=== PATIENT | female | born 1960 | race African-American/Black ===

== ENCOUNTER 2017-03-18 11:49 | Emergency (ER) | payer OTHER ==
[~2017-03-18] VITALS: Ht 167.6 cm; Wt 72.6 kg
[2017-03-18 12:20] VITALS: BP 187/83
[2017-03-18] MEDS ORDERED: cefTRIAXone SOD 1,000 MG VL IM ONE (12:30)
== END 2017-03-18 12:39 | disposition home or self-care (01) ==
LOC: ER 11:49
DX: L03.211 Cellulitis of face (principal)
CPT/HCPCS: 96372; 99283; J0696

== ENCOUNTER 2024-01-21 19:12 | Inpatient (IN) | payer OTHER ==
[~2024-01-21] VITALS: Ht 167.6 cm; Wt 64.9 kg
[2024-01-21 20:18] LABS: Basophils # (auto) 0 10 ^3/uL (0-0.2); Basophils % (auto) 1.1 % (0.0-2.0); Eosinophils # (auto) 0.2 10 ^3/uL (0-0.8); Hematocrit 34.3 % (36.0-46.0); Hemoglobin 11.2 g/dL (12.2-16.2); Lymphocytes # (auto) 1.9 10 ^3/uL (0.4-5.4); Lymphocytes % (auto) 42.7 % (10.0-50.0); Mean Corpuscular Hemoglobin 29.5 pg (28.0-32.0); Mean Corpuscular Hgb Conc. 32.7 g/dL (32.0-36.0); Monocytes # (auto) 0.7 10 ^3/uL (0-1.3); Monocytes % (auto) 15.6 % (0.0-12.0); Neutrophils # (auto) 1.6 10 ^3/uL (1.6-8.6); Neutrophils % (auto) 36.6 % (37.0-80.0); Nucleated Red Blood Cells % 0.2 %; Platelet Count (auto) 173 10^3/uL (140-450); Red Blood Cells 3.81 10^6/uL (4.0-5.20); Red Cell Distribution Width 13.8 % (11.8-14.3); White Blood Cell 4.3 10^3/uL (4.4-10.8)
[2024-01-21 20:34] LABS: INR 1.08 (0.9-1.15); Partial Thromboplastin Time 25.4 SEC (24.5-34.5); Prothrombin Time 11.4 sec (9.3-11.8)
[2024-01-21 20:38] LABS: Alanine Aminotransferase 54 U/L (7-40); Albumin 3.9 g/dL (3.2-4.8); Alkaline Phosphatase 125 U/L (46-116); Anion Gap 7 (5-15); Aspartate Aminotransferase 40 U/L (13-40); Bilirubin, Total 0.4 mg/dL (0.2-1.0); Blood Urea Nitrogen 15 mg/dL (9-23); Calcium 10.1 mg/dL (8.7-10.4); Carbon Dioxide 25 mmol/L (20-30); Chloride 112 mmol/L (98-107); Glucose 125 mg/dL (74-106); Potassium 3.8 mmol/L (3.5-5.1); Sodium 144 mmol/L (136-145)
[2024-01-21 20:39] LABS: Total Protein 6.2 g/dL (5.7-8.2)
[2024-01-21] MEDS: NITROGLYCERIN 0.4 MG SL TAB SL ONE (21:15)
[2024-01-21] MEDS: IOHEXOL 350 MG/ML 100ML IJ ONE (21:21)
[2024-01-21 21:50] VITALS: PULSE 88; RESP 29; O2SAT 96
[2024-01-21] MEDS: ASPirin 325 MG TAB PO ONE (22:36)
[2024-01-21 22:45] LABS: Urine Bacteria None Seen /hpf (None Seen)
[2024-01-21 23:03] LABS: Amphetamine Screen, Urine Neg (NEGATIVE); Barbiturate Scree,Urine Neg (NEGATIVE); Benzodiazephine Screen, Urine Neg (NEGATIVE); Cannabinoid Screen, Urine Pos (NEGATIVE); Cocaine Screen, Urine Neg (NEGATIVE); Opiate Scree,Urine Neg (NEGATIVE); Phencyclidine Screen, Urine Neg (NEGATIVE)
[2024-01-21 23:14] LABS: Urine Blood Negative /uL (Negative); Urine Clarity Turbid (Clear); Urine Color Yellow (Yellow); Urine Mucus FEW (None Seen); Urine Protein, UAD TRACE (Negative); Urine Specific Gravity 1.025 (1.001-1.035); Urine Urobilinogen 2 mg/dL (Negative); Urine WBC 16 /hpf (0 - 5); Urine pH 5.5 (5.0-9.0)
[2024-01-22] MEDS ORDERED: DOCUSATE SOD 100 MG CAP PO PRN (00:15)
[2024-01-22] MEDS ORDERED: NITROGLYCERIN 0.4 MG SL TAB SL PRN (00:15)
[2024-01-22] MEDS ORDERED: HYDROcodone-ACET 5/325MG TAB PO PRN (00:15)
[2024-01-22] MEDS ORDERED: MORPHINE SULFATE INJ 2 MG/ml SYRG IV PRN ×2 (00:15)
[2024-01-22] MEDS ORDERED: ONDANSETRON HCL 4 MG/2 ML VIAL IV PRN (00:15)
[2024-01-22 05:30] LABS: Basophils # (auto) 0.1 10 ^3/uL (0-0.2); Basophils % (auto) 1.3 % (0.0-2.0); Eosinophils # (auto) 0.2 10 ^3/uL (0-0.8); Eosinophils % (auto) 4.3 % (0.0-7.0); Hematocrit 30.7 % (36.0-46.0); Hemoglobin 10.4 g/dL (12.2-16.2); Lymphocytes # (auto) 1.9 10 ^3/uL (0.4-5.4); Lymphocytes % (auto) 44.2 % (10.0-50.0); Mean Corpuscular Hemoglobin 29.9 pg (28.0-32.0); Mean Corpuscular Hgb Conc. 33.8 g/dL (32.0-36.0); Mean Corpuscular Volume 88.4 fL (80.0-100.0); Monocytes # (auto) 0.5 10 ^3/uL (0-1.3); Monocytes % (auto) 10.7 % (0.0-12.0); Neutrophils # (auto) 1.7 10 ^3/uL (1.6-8.6); Neutrophils % (auto) 39.5 % (37.0-80.0); Platelet Count (auto) 145 10^3/uL (140-450); Red Blood Cells 3.47 10^6/uL (4.0-5.20); Red Cell Distribution Width 13.4 % (11.8-14.3); White Blood Cell 4.3 10^3/uL (4.4-10.8)
[2024-01-22 05:34] LABS: Chloride 111 mmol/L (98-107); Potassium 3.7 mmol/L (3.5-5.1); Sodium 142 mmol/L (136-145)
[2024-01-22 05:35] LABS: Anion Gap 6 (5-15); Carbon Dioxide 25 mmol/L (20-30)
[2024-01-22 05:36] LABS: Calcium 9.9 mg/dL (8.7-10.4)
[2024-01-22 05:41] LABS: BUN/Creatinine Ratio 31.4 (10.0-20.0); Blood Urea Nitrogen 16 mg/dL (9-23); Glucose 103 mg/dL (74-106)
[2024-01-22 07:55] VITALS: PULSE 86; RESP 14; O2SAT 98
[2024-01-22] MEDS: ASPirin 81 mg TAB PO SCH (09:37)
[2024-01-22] MEDS: ENOXAPARIN SOD 40 MG/0.4 ML SYRINGE SC SCH (09:37)
[2024-01-22] MEDS: cefTRIAXone 1GM/50ML D5W 50 ML IV SCH (09:37)
[2024-01-22] MEDS ORDERED: ATORVASTATIN 20 MG TAB PO SCH (10:00)
[2024-01-22] MEDS: MAGNESIUM SULFATE 1GM/100ML 100 ML IV SCH (13:45)
[2024-01-22] MEDS: methIMAzole 5 MG TAB PO SCH (15:21)
[2024-01-22 20:10] VITALS: PULSE 94; RESP 19; O2SAT 96
[2024-01-22 21:19] VITALS: BP 168/57; PULSE 80; RESP 18; TEMP 98; O2SAT 96
[2024-01-22 21:41] VITALS: PULSE 80; RESP 18; O2SAT 96
[2024-01-22] MEDS: ATORVASTATIN 20 MG TAB PO SCH (22:00)
[2024-01-22 23:46] VITALS: BP 159/49; PULSE 90; RESP 20; O2SAT 94
[2024-01-23] VITALS (7 sets, daily range): BP systolic 152–168; BP diastolic 79–109; PULSE 66–156; RESP 17–21; TEMP 97.4–98.7; O2SAT 91–98
[2024-01-23] MEDS: dilTIAZem 25 MG/5 ML VIAL IV ONE ×2 (07:02→09:19)
[2024-01-23 07:15] LABS: Basophils # (auto) 0 10 ^3/uL (0-0.2); Basophils % (auto) 0.2 % (0.0-2.0); Eosinophils # (auto) 0.2 10 ^3/uL (0-0.8); Eosinophils % (auto) 4.6 % (0.0-7.0); Hematocrit 30.9 % (36.0-46.0); Hemoglobin 10.6 g/dL (12.2-16.2); Lymphocytes # (auto) 1.3 10 ^3/uL (0.4-5.4); Lymphocytes % (auto) 37.8 % (10.0-50.0); Mean Corpuscular Hemoglobin 30.3 pg (28.0-32.0); Mean Corpuscular Hgb Conc. 34.2 g/dL (32.0-36.0); Mean Corpuscular Volume 88.5 fL (80.0-100.0); Monocytes # (auto) 0.4 10 ^3/uL (0-1.3); Monocytes % (auto) 10.1 % (0.0-12.0); Neutrophils # (auto) 1.6 10 ^3/uL (1.6-8.6); Neutrophils % (auto) 47.3 % (37.0-80.0); Nucleated Red Blood Cells % 0.1 %; Platelet Count (auto) 138 10^3/uL (140-450); Red Cell Distribution Width 13.4 % (11.8-14.3); White Blood Cell 3.5 10^3/uL (4.4-10.8)
[2024-01-23 07:32] LABS: Anion Gap 8 (5-15); Carbon Dioxide 24 mmol/L (20-30); Chloride 111 mmol/L (98-107); Potassium 3.7 mmol/L (3.5-5.1); Sodium 143 mmol/L (136-145)
[2024-01-23 07:33] LABS: Calcium 9.7 mg/dL (8.7-10.4)
[2024-01-23 07:37] LABS: Free T3 11.84 pg/mL (2.3-4.2)
[2024-01-23 07:38] LABS: BUN/Creatinine Ratio 16.4 (10.0-20.0); Blood Urea Nitrogen 9 mg/dL (9-23); Free T4 (Free Thyroxine) 3.13 ng/dL (0.89-1.76); Glucose 152 mg/dL (74-106)
[2024-01-23] MEDS: METOPROLOL SUCCINATE XL 50 MG TAB PO SCH (09:18)
[2024-01-23] MEDS: ENOXAPARIN SOD 60 MG/0.6 ML SYRINGE SC ONE (12:45)
[2024-01-23] MEDS: methIMAzole 5 MG TAB PO SCH (15:45)
[2024-01-23] MEDS: DIGOXIN (250MCG/ML) 2 ML AMPULE IV ONE (15:46)
[2024-01-23] MEDS: ENOXAPARIN SOD 60 MG/0.6 ML SYRINGE SC SCH (22:00)
[2024-01-24] VITALS (8 sets, daily range): BP systolic 121–147; BP diastolic 48–90; PULSE 74–129; RESP 16–20; TEMP 97.1–98.4; O2SAT 94–99
[2024-01-24] MEDS: ACETAMINOPHEN 325 MG TAB PO PRN (01:06)
[2024-01-24 08:07] LABS: Basophils # (auto) 0 10 ^3/uL (0-0.2); Basophils % (auto) 0.3 % (0.0-2.0); Eosinophils # (auto) 0.3 10 ^3/uL (0-0.8); Eosinophils % (auto) 7.9 % (0.0-7.0); Hematocrit 34.5 % (36.0-46.0); Hemoglobin 11.6 g/dL (12.2-16.2); Lymphocytes # (auto) 1.6 10 ^3/uL (0.4-5.4); Lymphocytes % (auto) 46.5 % (10.0-50.0); Mean Corpuscular Hemoglobin 29.7 pg (28.0-32.0); Mean Corpuscular Hgb Conc. 33.6 g/dL (32.0-36.0); Mean Corpuscular Volume 88.4 fL (80.0-100.0); Monocytes # (auto) 0.5 10 ^3/uL (0-1.3); Monocytes % (auto) 13.5 % (0.0-12.0); Neutrophils # (auto) 1.1 10 ^3/uL (1.6-8.6); Neutrophils % (auto) 31.8 % (37.0-80.0); Nucleated Red Blood Cells % 0.3 %; Platelet Count (auto) 156 10^3/uL (140-450); Red Blood Cells 3.91 10^6/uL (4.0-5.20); Red Cell Distribution Width 13.6 % (11.8-14.3); White Blood Cell 3.4 10^3/uL (4.4-10.8)
[2024-01-24 08:17] LABS: Anion Gap 7 (5-15); Carbon Dioxide 25 mmol/L (20-31); Chloride 111 mmol/L (98-107); Potassium 3.6 mmol/L (3.5-5.1); Sodium 143 mmol/L (136-145)
[2024-01-24 08:18] LABS: Calcium 10.2 mg/dL (8.7-10.4)
[2024-01-24 08:23] LABS: BUN/Creatinine Ratio 18.9 (10.0-20.0); Blood Urea Nitrogen 10 mg/dL (9-23)
[2024-01-24 08:29] LABS: Glucose 108 mg/dL (74-106)
[2024-01-24 09:25] LABS: Free T3 8.72 pg/mL (2.3-4.2)
[2024-01-24 09:27] LABS: Free T4 (Free Thyroxine) 2.58 ng/dL (0.89-1.76)
[2024-01-24] MEDS: DIGOXIN 0.125 MG TAB PO SCH (11:17)
[2024-01-25] VITALS (7 sets, daily range): BP systolic 119–140; BP diastolic 57–88; PULSE 66–95; RESP 16–20; TEMP 97.6–98.7; O2SAT 95–98
[2024-01-25 06:11] LABS: Basophils # (auto) 0 10 ^3/uL (0-0.2); Basophils % (auto) 0.4 % (0.0-2.0); Eosinophils # (auto) 0.3 10 ^3/uL (0-0.8); Eosinophils % (auto) 6.3 % (0.0-7.0); Hematocrit 32.4 % (36.0-46.0); Hemoglobin 11.3 g/dL (12.2-16.2); Lymphocytes # (auto) 1.8 10 ^3/uL (0.4-5.4); Lymphocytes % (auto) 45.3 % (10.0-50.0); Mean Corpuscular Hemoglobin 30.7 pg (28.0-32.0); Mean Corpuscular Hgb Conc. 34.8 g/dL (32.0-36.0); Mean Corpuscular Volume 88.2 fL (80.0-100.0); Monocytes # (auto) 0.6 10 ^3/uL (0-1.3); Monocytes % (auto) 14.6 % (0.0-12.0); Neutrophils # (auto) 1.4 10 ^3/uL (1.6-8.6); Neutrophils % (auto) 33.4 % (37.0-80.0); Platelet Count (auto) 149 10^3/uL (140-450); Red Blood Cells 3.68 10^6/uL (4.0-5.20); White Blood Cell 4.1 10^3/uL (4.4-10.8)
[2024-01-25 06:22] LABS: Anion Gap 9 (5-15); Calcium 10.2 mg/dL (8.7-10.4); Carbon Dioxide 24 mmol/L (20-31); Chloride 109 mmol/L (98-107); Potassium 3.4 mmol/L (3.5-5.1); Sodium 142 mmol/L (136-145)
[2024-01-25 06:25] LABS: Free T3 7.64 pg/mL (2.3-4.2); Free T4 (Free Thyroxine) 2.21 ng/dL (0.89-1.76)
[2024-01-25 06:27] LABS: Glucose 113 mg/dL (74-106)
[2024-01-25 06:28] LABS: BUN/Creatinine Ratio 23.6 (10.0-20.0); Blood Urea Nitrogen 13 mg/dL (9-23); Magnesium 1.8 mg/dL (1.6-2.6)
[2024-01-25] MEDS: POTASSIUM CHL 20 Meq TABLET PO ONE (17:46)
[2024-01-25] MEDS: APIXABAN 5 MG TAB PO SCH (21:54)
[2024-01-26 01:00] VITALS: BP 131/65; PULSE 98; RESP 16; TEMP 98; O2SAT 97
[2024-01-26 05:00] VITALS: BP 123/52; PULSE 95; RESP 18; TEMP 98; O2SAT 98
[2024-01-26 07:40] LABS: Basophils # (auto) 0 10 ^3/uL (0-0.2); Basophils % (auto) 0.4 % (0.0-2.0); Eosinophils # (auto) 0.2 10 ^3/uL (0-0.8); Eosinophils % (auto) 5.5 % (0.0-7.0); Hematocrit 34.4 % (36.0-46.0); Hemoglobin 11.2 g/dL (12.2-16.2); Lymphocytes # (auto) 2.1 10 ^3/uL (0.4-5.4); Lymphocytes % (auto) 47.5 % (10.0-50.0); Mean Corpuscular Hemoglobin 29.6 pg (28.0-32.0); Mean Corpuscular Hgb Conc. 32.5 g/dL (32.0-36.0); Monocytes # (auto) 0.6 10 ^3/uL (0-1.3); Monocytes % (auto) 13.2 % (0.0-12.0); Neutrophils # (auto) 1.5 10 ^3/uL (1.6-8.6); Neutrophils % (auto) 33.4 % (37.0-80.0); Nucleated Red Blood Cells % 0.1 %; Platelet Count (auto) 165 10^3/uL (140-450); Red Blood Cells 3.78 10^6/uL (4.0-5.20); Red Cell Distribution Width 13.8 % (11.8-14.3); White Blood Cell 4.4 10^3/uL (4.4-10.8)
[2024-01-26 07:50] LABS: Anion Gap 7 (5-15); Carbon Dioxide 22 mmol/L (20-31); Chloride 113 mmol/L (98-107); Potassium 4.1 mmol/L (3.5-5.1); Sodium 142 mmol/L (136-145)
[2024-01-26 07:56] LABS: BUN/Creatinine Ratio 20.6 (10.0-20.0); Blood Urea Nitrogen 13 mg/dL (9-23); Glucose 117 mg/dL (74-106)
[2024-01-26 08:00] VITALS: PULSE 66
[2024-01-26 08:22] VITALS: BP 149/72; PULSE 63; RESP 19; TEMP 98.1; O2SAT 95
[2024-01-26 11:44] VITALS: BP 161/84; PULSE 78; RESP 15; TEMP 97.5; O2SAT 95
[2024-01-26] MEDS ORDERED: DIGO1TAB48 PO (14:54)
[2024-01-26] MEDS ORDERED: METH5TAB98 PO (14:54)
[2024-01-26] MEDS ORDERED: APIX5TAB PO (14:54)
[2024-01-26] MEDS ORDERED: METO-6 PO (14:54)
[2024-01-26 16:27] VITALS: BP 135/73; PULSE 63; RESP 17; TEMP 36.4; O2SAT 95
[2024-01-27 10:22] LABS: Free T3 7.38 pg/mL (2.3-4.2)
[2024-01-27 10:23] LABS: Free T4 (Free Thyroxine) 2.09 ng/dL (0.89-1.76)
== END 2024-01-26 16:55 | disposition home or self-care (01) | DRG 644 ==
LOC: ER 19:12 → TELE 01-22 00:15 → TELE-WESTW 01-22 21:19
PROVIDERS: ADMIT Nurse Practitioner Family; ATTEND Internal Medicine
DX: E05.90 Thyrotoxicosis, unspecified without thyrotoxic crisis or storm (principal); I48.92 Unspecified atrial flutter; N39.0 Urinary tract infection, site not specified; F12.20 Cannabis dependence, uncomplicated; F41.9 Anxiety disorder, unspecified; I48.91 Unspecified atrial fibrillation; F17.200 Nicotine dependence, unspecified, uncomplicated; Z79.899 Other long term (current) drug therapy
CPT/HCPCS: 36415; 71045; 71275; 76536; 80048; 80053; 80307; 81001; 83605; 83735; 83880; 84439; 84443; 84481; 84484; 85025; 85379; 85610; 85730; 87086; 93005; 93306; 93970; G0378